=== PATIENT | female | born 1960 | race Caucasian/White ===

== ENCOUNTER 2018-01-14 19:31 | Inpatient (IN) | payer BC ==
[2018-01-14] MEDS ORDERED: NITROGLYCERIN OINT 1 INCH/GM PACKET TOPICAL STA (19:43)
[2018-01-14] MEDS ORDERED: MORPHINE SULFATE 4 MG/ML SYRINGE IV STA (19:43)
[2018-01-14] MEDS ORDERED: SODIUM CHLORIDE 0.9% 1,000 ML IV STA (19:43)
[2018-01-14] MEDS ORDERED: ADENOSINE 3 MG/ML 2 ML VIAL IVP STA ×2 (19:54→20:17)
--- NOTE | 2018-01-14 19:59 | XR ---
EXAMINATION TYPE: XR chest 1V portable DATE OF EXAM: 01/14/2018 COMPARISON: NONE HISTORY: Chest pain TECHNIQUE: Single frontal view of the chest is obtained. FINDINGS: Heart is enlarged. There is no heart failure. Lungs are clear of consolidation. There are chest leads. IMPRESSION: Cardiomegaly. No active cardiopulmonary disease.
[2018-01-14] MEDS ORDERED: DILTIAZEM 5 MG/ML 5 ML VIAL IVP ONE ×2 (20:00→20:15)
[2018-01-14 20:14] LABS: Creatine Kinase 50 U/L (30-135)
[2018-01-14] MEDS: DILTIAZEM 50 MG in SODIUM CHLORIDE 0.9% 40 ML IV SCH (20:15)
[2018-01-14 20:16] LABS: HCT 43.6 % (34.0-46.0); HGB 13.7 gm/dL (11.4-16.0); MCHC 31.5 g/dL (31.0-37.0); MCV 85.5 fL (80.0-100.0); Platelet Count 235 k/uL (150-450); RBC 5.09 m/uL (3.80-5.40); RDW 14.1 % (11.5-15.5)
[2018-01-14 20:19] LABS: Albumin 3.9 g/dL (3.5-5.0); Magnesium 1.3 mg/dL (1.6-2.3); Potassium 4.7 mmol/L (3.5-5.1); Total Bilirubin 1.9 mg/dL (0.2-1.3); Total Protein 7.4 g/dL (6.3-8.2)
[2018-01-14 20:27] LABS: Creatine Kinase MB 0.4 ng/mL (0.0-2.4); Troponin I <0.012 ng/mL (0.000-0.034)
[2018-01-14 20:33] LABS: VBG PH 7.39 (7.31-7.41)
[2018-01-14] MEDS ORDERED: PIPERACILLIN-TAZOBACTAM 3.375 GM in DEXTROSE/WATER 1 50ML.BAG IVPB STA (20:33)
[2018-01-14 20:50] LABS: INR 1.1 (<1.2)
[2018-01-14 20:50] LABS: Appearance,Urine Cloudy (Clear); Bacteria,Urine Rare /hpf; Bilirubin,Urine Negative (Negative); Blood,Urine Moderate (Negative); Color,Urine Yellow; Glucose,Urine (UA) 4+ (Negative); Ketones,Urine 1+ (Negative); Leukocyte Esterase,Urine Moderate (Negative); Mucus,Urine Rare /hpf; Nitrite,Urine Negative (Negative); PH, Urine 6.5 (5.0-8.0); Protein,Urine 1+ (Negative); RBC,Urine 27 /hpf (0-5); Specific Gravity,Urine 1.013 (1.001-1.035); Squamous Epithelial Cell,Urine 7 /hpf (0-4); Urobilinogen,Urine <2.0 mg/dL (<2.0); WBC,Urine 19 /hpf (0-5)
[2018-01-14] MEDS ORDERED: INSULIN REGULAR 100 UNIT/ML VIAL SQ ONE (20:51)
[2018-01-14 20:52] LABS: D-Dimer 3.28 mg/L FEU (<0.60)
--- NOTE | 2018-01-14 20:57 | ED ---
SOB HPI - General Chief Complaint: Shortness of Breath Stated Complaint: PATSY, Palpitations Time Seen by Provider: 01/14/18 19:37 Source: patient, EMS Mode of arrival: EMS Limitations: no limitations - History of Present Illness Initial Comments: Extremely years old female history of heart disease comes in with a shortness of breath and tachycardia on arrival heart rate was 189 she was quite tachycardic and tachypneic complaining about shortness of breath and we noticed that she has high fever she stated she probably missed some of her medication she is not sure how many dosage she is on now his overall toe and carvedilol at home. She is complaining about mild chest pain it gets worse with deep breaths denies any abdominal pain no frequency urgency dysuria no symptoms of TIA or CVA - Related Data Home Medications Medication Instructions Recorded Confirmed Carvedilol [Coreg] 18.75 mg PO BID 01/14/18 01/14/18 Lisinopril [Zestril] 15 mg PO BID 01/14/18 01/14/18 Rivaroxaban [Xarelto] 20 mg PO HS 01/14/18 01/14/18 Allergies Allergy/AdvReac Type Severity Reaction Status Date / Time ergocalciferol (vitamin D2) Allergy Rash/Hives Verified 01/14/18 20:01 [From Vitamin D2] Review of Systems ROS Statement: Those systems with pertinent positive or pertinent negative responses have been documented in the HPI. ROS Other: All systems not noted in ROS Statement are negative. General Exam - General Exam Comments Initial Comments: General: The patient is awake and alert, the cardiac, tachypneic in severe distress Skin: Skin is warm and dry and no rashes or lesions are noted. Eye: Pupils are equal, round and reactive to light, extra-ocular movements are intact; there is normal conjunctiva bilaterally. Ears, nose, mouth and throat: There are moist mucous membranes and no oral lesions. Neck: The neck is supple, there is no tenderness, looks like she is any congestive heart failure Cardiovascular: Tachycardia heart rate around 200 Respiratory: To auscultation bilateral, crease breath sounds bilaterally Gastrointestinal: Soft, non-distended, non-tender abdomen without masses or organomegaly noted. There is no rebound or guarding present. Bowel sounds are unremarkable. Back: There is no tenderness to palpation in the midline. There is no obvious deformity. Musculoskeletal: Normal ROM, no tenderness, There is no pedal edema. There is no calf tenderness or swelling. No cords were appreciated. Neurological: CN II-XII intact, Cranial nerves III through XII are intact. There are no obvious motor or sensory deficits. Coordination appears grossly intact. Speech is normal. Psychiatric: Cooperative, Limitations: no limitations Course Vital Signs 01/14/18 01/14/18 01/14/18 19:32 20:23 20:28 Temperature 103.0 F H Pulse Rate 177 H 174 H Respiratory 40 H 36 H Rate Blood Pressure 142/56 104/46 O2 Sat by Pulse 95 94 L Oximetry 01/14/18 01/14/18 01/14/18 20:30 20:45 21:00 Temperature Pulse Rate Respiratory Rate Blood Pressure 104/46 95/50 87/52 O2 Sat by Pulse Oximetry 01/14/18 01/14/18 21:20 21:33 Temperature Pulse Rate 135 H Respiratory 26 H Rate Blood Pressure 208/148 113/63 O2 Sat by Pulse 96 Oximetry EKG is noticed tachycardia heart rate is 189 noticed duration is 134 QT/QTc is 274/485 years right bundle branch block no significant STEMI noticed heart rate is too fast - Reevaluation(s) Reevaluation #1: Second EKG sinus tachycardia ventricular rate is 169 [place] interval is 112 QRS duration is 142 QT/QTc is 290/492% sinus tach right bundle branch block no clear STEMI noticed 01/14/18 21:45 Medical Decision Making - Lab Data Result diagrams: 01/14/18 19:50 01/14/18 19:50 Lab Results 01/14/18 01/14/18 01/14/18 Range/Units 19:50 19:50 19:50 WBC 5.0 (3.8-10.6) k/uL RBC 5.09 (3.80-5.40) m/uL Hgb 13.7 (11.4-16.0) gm/dL Hct 43.6 (34.0-46.0) % MCV 85.5 (80.0-100.0) fL MCH 27.0 (25.0-35.0) pg MCHC 31.5 (31.0-37.0) g/dL RDW 14.1 (11.5-15.5) % Plt Count 235 (150-450) k/uL Neutrophils % (Manual) 65 % Band Neutrophils % 19 % Lymphocytes % (Manual) 15 % Monocytes % (Manual) 1 % Neutrophils # (Manual) 4.20 (1.3-7.7) k/uL Lymphocytes # (Manual) 0.75 L (1.0-4.8) k/uL Monocytes # (Manual) 0.05 (0-1.0) k/uL Nucleated RBCs 0 (0-0) /100 WBC Manual Slide Review Performed RBC Morphology Normal PT (9.0-12.0) sec INR (<1.2) APTT (22.0-30.0) sec D-Dimer (<0.60) mg/L FEU VBG pH (7.31-7.41) VBG pCO2 (37-51) mmHg VBG HCO3 (24-28) mmol/L Sodium 135 L (137-145) mmol/L Potassium 4.7 (3.5-5.1) mmol/L Chloride 100 (98-107) mmol/L Carbon Dioxide 19 L (22-30) mmol/L Anion Gap 16 mmol/L BUN 20 H (7-17) mg/dL Creatinine 1.10 H (0.52-1.04) mg/dL Est GFR (CKD-EPI)AfAm 63 (>60 ml/min/1.73 sqM) Est GFR (CKD-EPI)NonAf 55 (>60 ml/min/1.73 sqM) Glucose 335 H (74-99) mg/dL Plasma Lactic Acid Scotty (0.7-2.0) mmol/L Calcium 9.0 (8.4-10.2) mg/dL Magnesium 1.3 L (1.6-2.3) mg/dL Total Bilirubin 1.9 H (0.2-1.3) mg/dL AST 30 (14-36) U/L ALT 22 (9-52) U/L Alkaline Phosphatase 105 (38-126) U/L Total Creatine Kinase 50 (30-135) U/L CK-MB (CK-2) 0.4 (0.0-2.4) ng/mL CK-MB (CK-2) Rel Index 0.8 Troponin I <0.012 (0.000-0.034) ng/mL NT-Pro-B Natriuret Pep pg/mL Total Protein 7.4 (6.3-8.2) g/dL Albumin 3.9 (3.5-5.0) g/dL Urine Color Urine Appearance (Clear) Urine pH (5.0-8.0) Ur Specific [place] (1.001-1.035) Urine Protein (Negative) Urine Glucose (UA) (Negative) Urine Ketones (Negative) Urine Blood (Negative) Urine Nitrite (Negative) Urine Bilirubin (Negative) Urine Urobilinogen (<2.0) mg/dL Ur Leukocyte Esterase (Negative) Urine RBC (0-5) /hpf Urine WBC (0-5) /hpf Ur Squamous Epith Cells (0-4) /hpf Urine Bacteria (None) /hpf Urine Mucus (None) /hpf 01/14/18 01/14/18 01/14/18 Range/Units 19:50 19:50 19:50 WBC (3.8-10.6) k/uL RBC (3.80-5.40) m/uL Hgb (11.4-16.0) gm/dL Hct (34.0-46.0) % MCV (80.0-100.0) fL MCH (25.0-35.0) pg MCHC (31.0-37.0) g/dL RDW (11.5-15.5) % Plt Count (150-450) k/uL Neutrophils % (Manual) % Band Neutrophils % % Lymphocytes % (Manual) % Monocytes % (Manual) % Neutrophils # (Manual) (1.3-7.7) k/uL Lymphocytes # (Manual) (1.0-4.8) k/uL Monocytes # (Manual) (0-1.0) k/uL Nucleated RBCs (0-0) /100 WBC Manual Slide Review RBC Morphology PT 11.0 (9.0-12.0) sec INR 1.1 (<1.2) APTT 26.0 (22.0-30.0) sec D-Dimer 3.28 H (<0.60) mg/L FEU VBG pH (7.31-7.41) VBG pCO2 (37-51) mmHg VBG HCO3 (24-28) mmol/L Sodium (137-145) mmol/L Potassium (3.5-5.1) mmol/L Chloride (98-107) mmol/L Carbon Dioxide (22-30) mmol/L Anion Gap mmol/L BUN (7-17) mg/dL Creatinine (0.52-1.04) mg/dL Est GFR (CKD-EPI)AfAm (>60 ml/min/1.73 sqM) Est GFR (CKD-EPI)NonAf (>60 ml/min/1.73 sqM) Glucose (74-99) mg/dL Plasma Lactic Acid Scotty 6.0 H* (0.7-2.0) mmol/L Calcium (8.4-10.2) mg/dL Magnesium (1.6-2.3) mg/dL Total Bilirubin (0.2-1.3) mg/dL AST (14-36) U/L ALT (9-52) U/L Alkaline Phosphatase (38-126) U/L Total Creatine Kinase (30-135) U/L CK-MB (CK-2) (0.0-2.4) ng/mL CK-MB (CK-2) Rel Index Troponin I (0.000-0.034) ng/mL NT-Pro-B Natriuret Pep 911 pg/mL Total Protein (6.3-8.2) g/dL Albumin (3.5-5.0) g/dL Urine Color Urine Appearance (Clear) Urine pH (5.0-8.0) Ur Specific [place] (1.001-1.035) Urine Protein (Negative) Urine Glucose (UA) (Negative) Urine Ketones (Negative) Urine Blood (Negative) Urine Nitrite (Negative) Urine Bilirubin (Negative) Urine Urobilinogen (<2.0) mg/dL Ur Leukocyte Esterase (Negative) Urine RBC (0-5) /hpf Urine WBC (0-5) /hpf Ur Squamous Epith Cells (0-4) /hpf Urine Bacteria (None) /hpf Urine Mucus (None) /hpf 01/14/18 01/14/18 Range/Units 20:20 20:25 WBC (3.8-10.6) k/uL RBC (3.80-5.40) m/uL Hgb (11.4-16.0) gm/dL Hct (34.0-46.0) % MCV (80.0-100.0) fL MCH (25.0-35.0) pg MCHC (31.0-37.0) g/dL RDW (11.5-15.5) % Plt Count (150-450) k/uL Neutrophils % (Manual) % Band Neutrophils % % Lymphocytes % (Manual) % Monocytes % (Manual) % Neutrophils # (Manual) (1.3-7.7) k/uL Lymphocytes # (Manual) (1.0-4.8) k/uL Monocytes # (Manual) (0-1.0) k/uL Nucleated RBCs (0-0) /100 WBC Manual Slide Review RBC Morphology PT (9.0-12.0) sec INR (<1.2) APTT (22.0-30.0) sec D-Dimer (<0.60) mg/L FEU VBG pH 7.39 (7.31-7.41) VBG pCO2 29 L (37-51) mmHg VBG HCO3 17 L (24-28) mmol/L Sodium (137-145) mmol/L Potassium (3.5-5.1) mmol/L Chloride (98-107) mmol/L Carbon Dioxide (22-30) mmol/L Anion Gap mmol/L BUN (7-17) mg/dL Creatinine (0.52-1.04) mg/dL Est GFR (CKD-EPI)AfAm (>60 ml/min/1.73 sqM) Est GFR (CKD-EPI)NonAf (>60 ml/min/1.73 sqM) Glucose (74-99) mg/dL Plasma Lactic Acid Scotty (0.7-2.0) mmol/L Calcium (8.4-10.2) mg/dL Magnesium (1.6-2.3) mg/dL Total Bilirubin (0.2-1.3) mg/dL AST (14-36) U/L ALT (9-52) U/L Alkaline Phosphatase (38-126) U/L Total Creatine Kinase (30-135) U/L CK-MB (CK-2) (0.0-2.4) ng/mL CK-MB (CK-2) Rel Index Troponin I (0.000-0.034) ng/mL NT-Pro-B Natriuret Pep pg/mL Total Protein (6.3-8.2) g/dL Albumin (3.5-5.0) g/dL Urine Color Yellow Urine Appearance Cloudy H (Clear) Urine pH 6.5 (5.0-8.0) Ur Specific [place] 1.013 (1.001-1.035) Urine Protein 1+ H (Negative) Urine Glucose (UA) 4+ H (Negative) Urine Ketones 1+ H (Negative) Urine Blood Moderate H (Negative) Urine Nitrite Negative (Negative) Urine Bilirubin Negative (Negative) Urine Urobilinogen <2.0 (<2.0) mg/dL Ur Leukocyte Esterase Moderate H (Negative) Urine RBC 27 H (0-5) /hpf Urine WBC 19 H (0-5) /hpf Ur Squamous Epith Cells 7 H (0-4) /hpf Urine Bacteria Rare H (None) /hpf Urine Mucus Rare H (None) /hpf Critical Care Time Total Critical Care Time: 60 Critical Care Time: He came in with the tachycardia and tachypnea she was in a severe distress adenosine was tried adenosine not slow the heart rate at all. Cardizem was trying to Cardizem's took care of the tachycardia heart rate was 134. Then we noticed that she has a fever septic workup was done she was given broad- spectrum antibiotics urine culture blood cultures were done chest x-ray showed cardiomegaly and bicarb is 17 and sugar is 3:30 5H not quite ketoacidosis she definitely has a metabolic acidosis and hyperglycemia and urinalysis is positive as well probably cystitis leading to sepsis area be admitted to Dr. Mcclure with the Dr. Francis infectious disease consult and cardiology area d-dimer came back positive she is given ago for CT angiogram Disposition Referrals: Ruddy Downey MD [Primary Care Provider] - 1-2 days
[2018-01-14 21:01] LABS: Band Neutrophils % 19 %; Lymphocytes # (M) 0.75 k/uL (1.0-4.8); Monocytes # (M) 0.05 k/uL (0-1.0); Neutrophils % (M) 65 %; Nucleated Red Blood Cells 0 /100 WBC (0-0); Total Cells Counted 100
[2018-01-14] MEDS ORDERED: SODIUM CHLORIDE 0.9% 250 ML IV STA ×2 (21:20→23:29)
--- NOTE | 2018-01-14 22:14 | CT ---
EXAMINATION TYPE: CT chest angio for PE DATE OF EXAM: 01/14/2018 COMPARISON: None HISTORY: Difficulty breathing and increased heart rate. CT DLP: 731.8 mGycm Automated exposure control for dose reduction was used. CONTRAST: CT Chest for pulmonary embolism performed with with IV Contrast, patient injected with 77ml mL of Iso aldo 370. FINDINGS: There are 3-D post processed images. There is markedly enlarged thyroid gland consistent with multinodular goiter. There are a few paratra cheal and bronchial lymph nodes up to 1 cm. Heart is enlarged. I see no filling defects in the pulmon denise arteries. Thoracic aorta is intact. There is no evidence of aneurysm or dissection. There is patc hy interstitial density at the lung bases. There is no pleural effusion. There is spurring in the tho racic spine. There is no compression fracture. IMPRESSION: No evidence of pulmonary embolism. Mild fibrotic changes at the lung bases. Multinodular goiter.
[2018-01-14] MEDS ORDERED: SODIUM CHLORIDE 0.9% 500 ML IV ONE (22:32)
[2018-01-14] MEDS ORDERED: NALOXONE 0.4 MG/ML 1 ML VIAL IV PRN (23:20)
[2018-01-14] MEDS ORDERED: ACETAMINOPHEN TAB 325 MG TAB PO PRN (23:20)
[2018-01-14] MEDS ORDERED: MORPHINE SULFATE 4 MG/ML SYRINGE IV PRN (23:20)
[2018-01-15] LABS: Glucose,Whole Blood 276 mg/dL (75-99)
[2018-01-15 00:02] LABS: VBG PH 7.28 (7.31-7.41)
[2018-01-15] MEDS ORDERED: INSULIN REGULAR 100 UNIT/ML VIAL SQ ONE (01:01)
[2018-01-15] MEDS ORDERED: SODIUM CHLORIDE 0.9% 500 ML IV ONE (01:01)
[2018-01-15] MEDS: DILTIAZEM 50 MG in SODIUM CHLORIDE 0.9% 40 ML IV SCH ×2 (01:23→09:31)
[2018-01-15 01:48] LABS: Glucose,Whole Blood 180 mg/dL (75-99)
[2018-01-15] MEDS ORDERED: NOREPINEPHRIN 4 MG-0.9% NS PMX 4 MG/250 ML ML IV ONE (02:06)
[2018-01-15] MEDS ORDERED: SODIUM CHLORIDE 0.9% 1,000 ML IV ONE ×5 (02:12→07:09)
[2018-01-15] MEDS ORDERED: NOREPINEPHRIN 4 MG-0.9% NS PMX 4 MG/250 ML ML IV SCH (02:30)
[2018-01-15 02:46] VITALS: BMI 50.6
[2018-01-15 03:13] LABS: Hypochromasia Slight
[2018-01-15 03:18] LABS: HCT 39.3 % (34.0-46.0); HGB 12.1 gm/dL (11.4-16.0); MCH 27.4 pg (25.0-35.0); MCHC 30.8 g/dL (31.0-37.0); MCV 88.9 fL (80.0-100.0); Mean Platelet Volume 7.3; Platelet Count 219 k/uL (150-450); RBC 4.42 m/uL (3.80-5.40); RDW 14.1 % (11.5-15.5); WBC 20.7 k/uL (3.8-10.6)
[2018-01-15 03:32] LABS: Calcium 8.2 mg/dL (8.4-10.2); Magnesium 1.3 mg/dL (1.6-2.3); Phosphorus 1.9 mg/dL (2.5-4.5); Potassium 3.3 mmol/L (3.5-5.1)
[2018-01-15 03:40] LABS: Myelocytes # (M) 0.21 k/uL (0); Myelocytes % 1 %; Neutrophils % (M) 48 %; Nucleated Red Blood Cells 0 /100 WBC (0-0)
[2018-01-15 03:42] LABS: Band Neutrophils % 36 %; Lymphocytes # (M) 1.86 k/uL (1.0-4.8); Metamyelocytes # (M) 1.45 k/uL (0); Metamyelocytes % 7 %; Monocytes # (M) 0.21 k/uL (0-1.0); Total Cells Counted 200
[2018-01-15 03:43] LABS: Toxic Granulation Present; Toxic Vacuolation Present
[2018-01-15] MEDS ORDERED: VANCOMYCIN IV PER PHARMACY 1 EACH MISC MISCELLANE PRN (04:20)
[2018-01-15] MEDS ORDERED: SODIUM CHLORIDE 0.9% 99 ML with VASOPRESSIN 20 UNIT IV SCH ×2 (04:30)
[2018-01-15] MEDS ORDERED: MAGNESIUM SULFATE-D5W PMX 1 GM in DEXTROSE/WATER 1 100ML.BAG IVPB ONE ×2 (04:55→09:00)
[2018-01-15] MEDS ORDERED: POTASSIUM CHLORIDE 20 MEQ in WATER FOR INJECTION 1 100ML.BAG IVPB STA (04:55)
[2018-01-15] MEDS ORDERED: VANCOMYCIN 2,000 MG in SODIUM CHLORIDE 0.9% 500 ML IVPB ONE (05:00)
[2018-01-15 06:01] LABS: Glucose,Whole Blood 211 mg/dL (75-99)
[2018-01-15] MEDS ORDERED: NOREPINEPHRINE 16 MG in DEXTROSE 5% IN WATER 250 ML IV SCH ×2 (06:45)
[2018-01-15] MEDS ORDERED: INSULIN REGULAR BOLUS (FROM DRIP BAG) IV PRN (07:04)
--- NOTE | 2018-01-15 07:04 | P.CNPUL ---
History of Present Illness Consult date: 01/15/18 Chief complaint: Septic shock, hypotension History of present illness: 58-year-old morbidly obese female patient with a BMI of 50.6, with known history of chronic atrial fibrillation was demented on a combination of Coreg and Xarelto on outpatient basis. The patient presented to the emergency department yesterday evening complaining of increased shortness of breath. At the time of arrival the patient was found to be tachycardic with a heart rate in the 190 and she was in atrial fibrillation with rapid ventricular response. She was started on a Cardizem drip for rate control. Subsequently the patient had other manifestations of her last weakness, chills, fatigue, fever and blood work showed severe lactic acidosis, leukocytosis, and as the patient got moved to the intensive care unit the patient became profoundly hypotensive. She was resuscitated with a total of 4-1/2 L of IV fluids to support. She was also started on broad-spectrum antibiotics a combination of Zosyn and vancomycin. At this point in time, the patient is on pressors and the patient is on a combination of norepinephrine infusion running at 35 mics and vasopressin physiologic dose at 0.03 units per minute. The patient has developed an acute kidney injury in the creatinine up to 2.3. The patient is not producing any urine. With fluid resuscitation and pressors, the patient is feeling warmer at this point in time and she has pulses in lower extremities without palpable bilaterally. Subsequent lactic acid level came down to 7.0. We are the process of aggressively resuscitating this patient. Her cardiac rhythm is back to normal sinus and she is currently off the Cardizem drip. Upon further investigation, the patient had a CT angios the chest in the emergency department that showed no evidence of any pulmonary embolism. There was mildly enlarged thyroid gland consistent with multinodular goiter. There was some few paratracheal and bronchial lymph nodes up to 1 cm in size. The patient had a UA that showed 19 WBCs and was cloudy with +4 glucose and +1 protein. Upon further inspection she has a large sacral decub position ulcer stage IV and there are areas that are unstageable. The wound is extending within her medial aspect of the buttock, and this is a fairly large area extending from the coccyx area until the anal opening/orifice. It is also going laterally from the midline in both directions right and left covering probably 3 cm and a stat action and there are areas of necrosis and there is some purulent material covering the wound surface. This is at least stage III possibly stage IV decub ulcer. No exposed bone visualized on inspection. Neurologically the patient was encephalopathic at the time of arrival and with the resuscitation the patient improved and she is currently awake and following commands and answering questions appropriately. She wants to be a DNR/DNI CODE STATUS. I discussed this with her at length. She categorically refuses to be intubated and she has advanced directives at home and signed paperwork in this regard. She reports that her health in general has been poor and this has been essentially related to her morbid obesity. As for the sacral wounds, this is related to pressure necrosis and immobility. She lives at home with her mother. Denies having any history of chronic lung disease or asthma or COPD. She has history of chronic atrial fibrillation. No DVTs. No pulmonate embolism. No visual diagnosis of sleep apnea. Review of Systems Constitutional: Reports chronic pain, Reports fatigue, Reports fever, Reports night sweats, Reports sweats, Reports weakness, Reports weight gain Eyes: denies blurred vision, denies bulging eye, denies decreased vision Ears: deny: decreased hearing, ear discharge, earache, tinnitus Ears, nose, mouth and throat: Denies headache, Denies sore throat Cardiovascular: Reports decreased exercise tolerance, Reports dyspnea on exertion, Reports irregular heart beat, Reports lightheadedness, Reports palpitations Respiratory: Reports dyspnea Gastrointestinal: Denies abdominal pain, Denies diarrhea, Denies nausea, Denies vomiting Genitourinary: Denies dysuria, Denies hematuria Musculoskeletal: Denies myalgias Musculoskeletal: absent: ankle pain, ankle stiffness, ankle swelling, as per HPI Integumentary: Reports as per HPI, Reports sores, Reports wounds Neurological: Reports change in mentation, Reports confusion, Reports weakness Psychiatric: Denies anxiety, Denies depression Endocrine: Reports high blood sugars, Denies fatigue, Denies weight change Hematologic/Lymphatic: Reports as per HPI Allergic/Immunologic: Reports as per HPI Past Medical History Past Medical History: Atrial Fibrillation, Heart Failure, Sleep Apnea/CPAP/BIPAP Additional Past Medical History / Comment(s): Morbid obesity, chronic atrial fibrillation, hypertension and questionable sleep apnea History of Any Multi-Drug Resistant Organisms: None Reported Past Surgical History: No Surgical Hx Reported Past Psychological History: No Psychological Hx Reported Smoking Status: Never smoker Past Alcohol Use History: Occasional Past Drug Use History: None Reported Medications and Allergies Home Medications Medication Instructions Recorded Confirmed Type Carvedilol [Coreg] 18.75 mg PO BID 01/14/18 01/14/18 History Lisinopril [Zestril] 15 mg PO BID 01/14/18 01/14/18 History Rivaroxaban [Xarelto] 20 mg PO HS 01/14/18 01/14/18 History Allergies Allergy/AdvReac Type Severity Reaction Status Date / Time ergocalciferol (vitamin D2) Allergy Rash/Hives Verified 01/14/18 20:01 [From Vitamin D2] Physical Exam Vitals: Vital Signs Temp Pulse Resp BP Pulse Ox 01/15/18 05:00 104 H 28 H 91/47 95 01/15/18 04:50 105 H 30 H 103/53 94 L 01/15/18 04:40 105 H 27 H 101/53 95 01/15/18 04:30 104 H 24 113/49 94 L 01/15/18 04:20 103 H 28 H 100/55 94 L 01/15/18 04:10 104 H 35 H 71/48 93 L 01/15/18 04:00 104 H 31 H 104/51 96 03 03:50 104 H 21 77/34 95 01/15/18 03:40 100 40 H 86/54 95 01/15/18 03:30 104 H 30 H 96/51 94 L 01/15/18 03:20 102 H 22 99/55 94 L 01/15/18 03:10 105 H 29 H 101/52 94 L 01/15/18 03:00 101 H 23 93/54 94 L 01/15/18 02:50 101 H 25 H 92/45 96 01/15/18 02:40 101 H 22 80/47 96 01/15/18 02:30 99 23 96/55 91 L 01/15/18 02:20 102 H 28 H 68/47 92 L 01/15/18 02:10 107 H 27 H 71/45 94 L 01/15/18 02:00 98.1 F 107 H 30 H 62/44 91 L 01/15/18 00:31 115 H 20 93/55 01/15/18 00:09 116 H 20 149/105 98 01/14/18 23:37 119 H 117/53 01/14/18 23:00 125 H 22 97 01/14/18 22:18 100.9 F H 125 H 20 101/54 97 01/14/18 22:15 124 H 124/94 01/14/18 21:55 121 H 20 96/53 96 01/14/18 21:33 135 H 26 H 113/63 96 01/14/18 21:00 87/52 01/14/18 20:45 95/50 01/14/18 20:30 104/46 01/14/18 20:28 174 H 104/46 94 L 01/14/18 20:23 177 H 36 H 142/56 95 01/14/18 19:53 56 H 01/14/18 19:32 103.0 F H 40 H Intake and Output 01/14/18 01/14/18 01/15/18 14:59 22:59 06:59 Intake Total 3240.375 Output Total 20 Balance 3220.375 Intake: IV 3000 Sodium Chloride 0.9% 1, 3000 000 ml @ 999 mls/hr IV . Q1H1M [facility] Rx#:[id number] Intake, IV Titration 240.375 Amount Diltiazem 50 mg In Sodium 66 Chloride 0.9% 40 ml @ 10 MG/HR 10 mls/hr IV .Q5H [facility] Rx#:[id number] Norepinephrin 4 mg-0.9% 174.375 Ns Pmx 4 mg In 250 ml @ Titrate IV .Q0M [facility] Rx#: [id number] Output: Urine 20 Other: Weight 99.79 kg 138 kg Morbidly obese, comfortable encephalopathic at a time of arrival and currently she is awake and alert and she is following commands and answering questions appropriately. She is very reasonable and with the program at this point in time. She is having some sweats. Head exam was generally normal. There was no scleral icterus or corneal arcus. Mucous membranes were moist. Neck was supple and without jugular venous distension, thyromegaly, or carotid bruits. Carotids were easily palpable bilaterally. There was no adenopathy. The patient currently has an IJ in her left side lung sounds are diminished breath sound bilaterally in the lung bases. Otherwise there is no wheezes or rhonchi any crackles. heart sounds are irregular S1-S2, no significant murmurs could be appreciated. No right ventricular heave or thrill. Abdomen is obese soft nontender. Organs cannot be accurately palpated. There is no edema. No direct tenderness about this or guarding. Extremities revealed diminished pulses. There palpable. There is no cyanosis or clubbing at this point. Neurologically patient is awake and alert and is no focal neurological deficit. Skin the patient has a stage IV sacral decubitus patient ulcer extending from the sacral area to the anal orifice in the midline and extending laterally in both directions right and left around 2-3 cm in size. This is a stage IV ulcer covered with purulent material and there are obvious areas of necrosis. Results - Laboratory Findings CBC and BMP: 01/15/18 03:04 01/15/18 03:04 PT/INR, D-dimer PT 11.0 sec (9.0-12.0) 01/14/18 19:50 INR 1.1 (<1.2) 01/14/18 19:50 D-Dimer 3.28 mg/L FEU (<0.60) H 01/14/18 19:50 Abnormal lab findings: Abnormal Labs 01/14/18 01/14/18 01/14/18 19:50 19:50 19:50 WBC MCHC Neutrophils # (Manual) Lymphocytes # (Manual) 0.75 L Metamyelocytes # (Man) Myelocytes # (Manual) D-Dimer 3.28 H VBG pH VBG pCO2 VBG HCO3 Sodium 135 L Potassium Carbon Dioxide 19 L BUN 20 H Creatinine 1.10 H Glucose 335 H POC Glucose (mg/dL) Plasma Lactic Acid Scotty Calcium Phosphorus Magnesium 1.3 L Total Bilirubin 1.9 H Urine Appearance Urine Protein Urine Glucose (UA) Urine Ketones Urine Blood Ur Leukocyte Esterase Urine RBC Urine WBC Ur Squamous Epith Cells Urine Bacteria Urine Mucus 01/14/18 01/14/18 01/14/18 19:50 20:20 20:25 WBC MCHC Neutrophils # (Manual) Lymphocytes # (Manual) Metamyelocytes # (Man) Myelocytes # (Manual) D-Dimer VBG pH VBG pCO2 29 L VBG HCO3 17 L Sodium Potassium Carbon Dioxide BUN Creatinine Glucose POC Glucose (mg/dL) Plasma Lactic Acid Scotty 6.0 H* Calcium Phosphorus Magnesium Total Bilirubin Urine Appearance Cloudy H Urine Protein 1+ H Urine Glucose (UA) 4+ H Urine Ketones 1+ H Urine Blood Moderate H Ur Leukocyte Esterase Moderate H Urine RBC 27 H Urine WBC 19 H Ur Squamous Epith Cells 7 H Urine Bacteria Rare H Urine Mucus Rare H 01/14/18 01/14/18 01/15/18 23:55 23:57 00:35 WBC MCHC Neutrophils # (Manual) Lymphocytes # (Manual) Metamyelocytes # (Man) Myelocytes # (Manual) D-Dimer VBG pH 7.28 L VBG pCO2 34 L VBG HCO3 16 L Sodium Potassium Carbon Dioxide BUN Creatinine Glucose POC Glucose (mg/dL) 276 H Plasma Lactic Acid Scotty 10.8 H* Calcium Phosphorus Magnesium Total Bilirubin Urine Appearance Urine Protein Urine Glucose (UA) Urine Ketones Urine Blood Ur Leukocyte Esterase Urine RBC Urine WBC Ur Squamous Epith Cells Urine Bacteria Urine Mucus 01/15/18 01/15/18 01/15/18 01:46 03:04 03:04 WBC 20.7 H MCHC 30.8 L Neutrophils # (Manual) 17.30 H Lymphocytes # (Manual) Metamyelocytes # (Man) 1.45 H Myelocytes # (Manual) 0.21 H D-Dimer VBG pH VBG pCO2 VBG HCO3 Sodium 136 L Potassium 3.3 L Carbon Dioxide 15 L BUN 26 H Creatinine 2.32 H Glucose 147 H POC Glucose (mg/dL) 180 H Plasma Lactic Acid Scotty Calcium 8.2 L Phosphorus 1.9 L Magnesium 1.3 L Total Bilirubin Urine Appearance Urine Protein Urine Glucose (UA) Urine Ketones Urine Blood Ur Leukocyte Esterase Urine RBC Urine WBC Ur Squamous Epith Cells Urine Bacteria Urine Mucus 01/15/18 01/15/18 04:17 06:00 WBC MCHC Neutrophils # (Manual) Lymphocytes # (Manual) Metamyelocytes # (Man) Myelocytes # (Manual) D-Dimer VBG pH VBG pCO2 VBG HCO3 Sodium Potassium Carbon Dioxide BUN Creatinine Glucose POC Glucose (mg/dL) 211 H Plasma Lactic Acid Scotty 7.0 H* Calcium Phosphorus Magnesium Total Bilirubin Urine Appearance Urine Protein Urine Glucose (UA) Urine Ketones Urine Blood Ur Leukocyte Esterase Urine RBC Urine WBC Ur Squamous Epith Cells Urine Bacteria Urine Mucus - Diagnostic Findings Chest x-ray: image reviewed CT scan - chest: image reviewed Assessment and Plan Plan: Assessment 1 septic shock. The patient is profoundly hypotensive and in hemodynamic collapse. The most likely source of infection is a sacral decubitus ulceration. The patient has a stage IV sacral decub ulcer/pressure ulcer due to immobility. No other obvious source of infection. The possibility of urinary tract infection with secondary septicemia is felt to be less likely. 2 profound hypotension resuscitated with 5 L of IV fluids and she is currently on high-dose pressors including norepinephrine infusion and vasopressin. 3 acute kidney injury secondary to above. The patient is oliguric and creatinine is up to 2.3. 4 severe lactic acidosis secondary to above 5 CHF fibrillation with rapid ventricular response at the time of admission and currently the patient is in sinus rhythm 6 chronic atrial fibrillation maintained on a combination of Coreg and Xarelto on outpatient basis 7. Hyperglycemia likely sepsis induced. 8 leukocytosis secondary to above 9 morbid obesity with a BMI 50.6 10 DNR/DNI CODE STATUS 11 encephalopathy secondary to sepsis, improving. Plan We'll give the patient additional 2 L of IV fluids. Triple-lumen catheter was inserted. Artery catheter was inserted. We'll monitor the CVP. We'll continue the pressors and we'll gradually wean down the norepinephrine infusion maintaining a mean arterial pressure above 65. Monitor the urine output. Cover the patient with a combination of Zosyn and vancomycin. Keep the Cardizem drip off for now. Obtain an ID consultation. The patient will need also wound care. We cleaned the wound and apply many honey. And will put OptiForm for now. We'll consult infectious disease. We'll utilize insulin drip for blood sugar control. Will stop the Xarelto as the patient is developing acute kidney injury. We'll use only heparin subcu for DVT prophylaxis for now. May need an echocardiogram to assess her baseline LV function. Condition is critical. She has declined to be intubated in case her condition gets worse. She apparently has advanced directives. Her encephalopathy is improving and the patient is much more alert and awake yet she is still critically ill. Time with Patient: Greater than 30
[2018-01-15] MEDS ORDERED: INSULIN REGULAR 100 UNIT in SODIUM CHLORIDE 0.9% 100 ML IV SCH (07:15)
--- NOTE | 2018-01-15 07:23 | PCN ---
PROCEDURE NOTE PROCEDURE: Insertion of triple-lumen catheter. SITE OF INSERTION: Left IJ. PREOP DIAGNOSIS: Septic shock. POSTOP DIAGNOSIS: Septic shock. TRIPLE LUMEN CATHETER PLACEMENT: Indication Hemodynamic monitoring/Intravenous access. A time-out was completed verifying correct patient, procedure, site, positioning, and implant(s) or special equipment if applicable. The patient was placed in a dependent position appropriate for triple lumen catheter placement based on the vein to be cannulated. The patient's left neck was prepped and draped in sterile fashion. 1% Lidocaine was used to anesthetize the surrounding skin area. A triple lumen 9F Cordis catheter was introduced into the internal jugular vein using Seldinger technique. The catheter was threaded smoothly over the guide wire and appropriate blood return was obtained. Each lumen of the catheter was evacuated of air and flushed with sterile saline. The catheter was then sutured in place to the skin and a sterile dressing applied. Perfusion to the extremity distal to the point of catheter insertion was checked and found to be adequate. No bedside complications or bleeding. Chest x-ray showed no pneumothorax. MMODL / IJN: [id number] /
--- NOTE | 2018-01-15 07:23 | PCN ---
PROCEDURE NOTE PROCEDURE: Insertion art line catheter. PREOP DIAGNOSIS: Septic shock. POSTOP DIAGNOSIS: Septic shock. SITE OF INSERTION: Right radial artery. ARTERIAL LINE PLACEMENT: Indications: Hemodynamic monitoring. A time-out was completed verifying correct patient, procedure, site, positioning, and implant(s) or special equipment if applicable. Christiano's test was performed to ensure adequate perfusion. The patient's right wrist was prepped and draped in sterile fashion. 1% Lidocaine was used to anesthetize the area. An 18G Arrow arterial line was introduced into the radial artery. The catheter was threaded over the guide wire and the needle was removed with appropriate pulsatile blood return. Blood loss was minimal. The catheter was then sutured in place to the skin and a sterile dressing applied. Perfusion to the extremity distal to the point of catheter insertion was checked and found to be adequate. The patient tolerated the procedure well and there were no complications. No bedside complications or bleeding. MMODL / IJN: [id number] /
[2018-01-15] MEDS ORDERED: CARVEDILOL 6.25 MG TAB PO SCH (07:30)
--- NOTE | 2018-01-15 07:35 | CONS ---
CONSULTATION ATTENDING: Dr. Downey Mrs. Allen is a 58-year-old female who is followed by Dr. Joel Gonsalez with a history of atrial fibrillation, anticoagulated, history of hypertension, who presented was not feeling well, chills, fever and achiness. She was noted to be septic with a large decubitus ulcer in her back. According to the patient, she is active physically, but she had that ulceration for a while and was getting worse. She has some dyspnea. No chest pain. She has no significant peripheral edema. No clear PND nor orthopnea. She was evaluated by Dr. Jiménez and was started on pressors as well as a had lines placed. She was tachycardic on presentation. Her rate is better on IV Cardizem. The patient denies any cough. She is a nonsmoker. She denies any prior history of documented obstructive coronary artery disease or congestive heart failure. No prior workup is available to me at this time. Her coronary risk factors are remarkable for the hypertension. MEDICATION: Include lisinopril 15 mg twice a day, Coreg 18.75 mg twice a day, and Xarelto 20 mg daily. REVIEW OF SYSTEMS: RESPIRATORY SYSTEM: She had dyspnea. No significant cough. No document obstructive lung disease. GI SYSTEM: No recent GI bleeding. No peptic ulcer disease. SYSTEM: No dysuria or hematuria. NERVOUS SYSTEM: No stroke or seizure. PHYSICAL EXAMINATION: She is a 58-year-old female, alert. Appears to be acutely ill. Heart rate running in the low 100s with a blood pressure in the 90s to low 100s. HEAD: Normocephalic. EYES: Sclerae anicteric. NECK: Unable to evaluate jugular venous pressure. LUNGS: No wheezes with mild decrease in breath sounds. HEART: Tachycardic S1, S2. No S3 with systolic murmur at the base. No diastolic murmur. ABDOMEN: Soft, obese, nontender. EXTREMITIES: Trace edema. A decubitus wound is noted deep in the buttocks. LAB DATA: Lab data revealed a white blood cell of 20.7, potassium 3.3, BUN and creatinine 26 and 2.32. On presentation her creatinine was 1.1. Her plasma lactic acid was 10.8. Her magnesium is 1.3. Her EKG revealed atrial fibrillation with a right bundle branch block, rate of 189. CT angiogram revealed no evidence of pulmonary embolism. Chest x- ray shows no infiltrate. IMPRESSION: 1. Sepsis probably related to her wound. The patient had large sacral decubitus. 2. Atrial fibrillation with episode of rapid ventricular response on presentation related to her sepsis. 3. Hypertension with septic shock. 4. Acute kidney injury, probably exacerbated by the intravenous dye. 5. Morbid obesity. RECOMMENDATION: I will stop her lisinopril. I will stop her Coreg. I will try her metoprolol to control her blood pressure. An echocardiogram with Doppler will be obtained. I do not believe that we are dealing with an acute congestive heart failure, nor an acute ischemic event. The patient is receiving IV fluid resuscitation as well as pressors as well as antibiotics. Depending on her progress, further recommendation will be made. The prognosis is guarded. The patient has elected to be a no intubation. Thank you for this consult. We will follow with you. SHEELAL / IJN: [id number] /
[2018-01-15] MEDS ORDERED: HEPARIN SODIUM,PORCINE 5,000 UNIT/ML 1 ML VIAL SQ SCH (08:00)
[2018-01-15 08:24] LABS: Glucose,Whole Blood 181 mg/dL (75-99)
[2018-01-15 08:30] LABS: ABG HCO3 13 mmol/L (21-25); ABG Oxygen Saturation 95.8 % (94-97); ABG PCO2 35 mmHg (35-45); ABG PO2 86 mmHg (83-108); ABG TCO2 14 mmol/L (19-24)
[2018-01-15 08:41] LABS: Albumin 2.5 g/dL (3.5-5.0); Potassium 4.2 mmol/L (3.5-5.1); Total Bilirubin 0.9 mg/dL (0.2-1.3); Total Protein 5.4 g/dL (6.3-8.2)
[2018-01-15] MEDS: INSULIN ASPART 100 UNIT/ML 1 ML 10 ML VIAL SQ SCH ×2 (08:57→14:30)
[2018-01-15] MEDS ORDERED: LISINOPRIL 5 MG TAB PO SCH (09:00)
[2018-01-15] MEDS ORDERED: PIPERACILLIN-TAZOBACTAM 3.375 GM in DEXTROSE/WATER 1 50ML.BAG IVPB SCH (09:00)
[2018-01-15] MEDS ORDERED: METOPROLOL TARTRATE 50 MG TAB PO SCH (09:00)
[2018-01-15] MEDS ORDERED: PANTOPRAZOLE 40 MG/10 ML VIAL IVP SCH (09:00)
--- NOTE | 2018-01-15 09:43 | ECHOF ---
Referral Reason:CHF history MEASUREMENTS -------- HEIGHT: 165.1 cm WEIGHT: 137.9 kg BP: 103/54 RVIDd: 3.1 cm (< 3.3) IVSd: 1.6 cm (0.6 - 1.1) LVIDd: 4.4 cm (3.9 - 5.3) LVPWd: 1.9 cm (0.6 - 1.1) IVSs: 2.0 cm LVIDs: 3.0 cm LVPWs: 2.1 cm Ao Diam: 2.9 cm (2.0 - 3.7) LA Diam: 3.2 cm (2.7 - 3.8) MV EXCURSION: 19.132 mm (> 18.000) MV EF SLOPE: 94 mm/s (70 - 150) EPSS: 0.7 cm MV E Jamie: 1.09 m/s MV DecT: 196 ms MV A Jamie: 0.43 m/s MV E/A Ratio: 2.53 RAP: 5.00 mmHg RVSP: 14.00 mmHg FINDINGS -------- Resting tachycardia (HR>100bpm). This was a technically difficult study with suboptimal views. The left ventricular size is normal. There is moderate concentric left ventricular hypertrophy. O verall left ventricular systolic function is normal with, an EF between 55 - 60 %. The right ventricle is normal in size. The left atrium is normal in size. The right atrium is normal in size. Lumason used The aortic valve is trileaflet and appears structurally normal. The mitral valve leaflets are mildly thickened. Mild mitral regurgitation is present. Mild tricuspid regurgitation present. The right ventricular systolic pressure, as measured by Doppl er, is 14.00mmHg. Pulmonic valve appears structurally normal. The aortic root size is normal. The pericardium is normal. CONCLUSIONS -------- 1. Resting tachycardia (HR>100bpm). 2. This was a technically difficult study with suboptimal views. 3. The left ventricular size is normal. 4. There is moderate concentric left ventricular hypertrophy. 5. Overall left ventricular systolic function is normal with, an EF between 55 - 60 %. 6. The right ventricle is normal in size. 7. The left atrium is normal in size. 8. The right atrium is normal in size. 9. Lumason used 10. The aortic valve is trileaflet and appears structurally normal. 11. The mitral valve leaflets are mildly thickened. 12. Mild mitral regurgitation is present. 13. Mild tricuspid regurgitation present. 14. The right ventricular systolic pressure, as measured by Doppler, is 14.00mmHg. 15. Pulmonic valve appears structurally normal. 16. The aortic root size is normal. 17. The pericardium is normal. INSTRUCTOR OF SPANISH: Richa Magana RDCS
[2018-01-15] MEDS ORDERED: SODIUM BICARB 8.4% 50 ML SYR (1 MEQ/ML) IV ONE (10:05)
[2018-01-15] MEDS ORDERED: EPINEPHrine 2 MG in DEXTROSE 5% IN WATER 250 ML IV SCH ×2 (10:15)
[2018-01-15] MEDS: SODIUM CHLORIDE 0.9% 1,000 ML IV SCH ×2 (10:16→11:04)
--- NOTE | 2018-01-15 10:52 | XR ---
EXAMINATION TYPE: XR chest 1V portable DATE OF EXAM: 01/15/2018 COMPARISON: 01/14/2018 INDICATION: Line placement TECHNIQUE: Single frontal view of the chest is obtained. FINDINGS: The heart size is enlarged. The pulmonary vasculature is normal. No suspicious infiltrates are present. Left central venous catheter is in place with tip in the proximal right atrium. No pneumothorax is ev ident. IMPRESSION: 1. No pneumothorax post left central venous catheter placement. Tip is in the proximal right atrium.
[2018-01-15] MEDS ORDERED: ONDANSETRON 4 MG/2 ML VIAL IVP PRN (11:19)
[2018-01-15] MEDS ORDERED: ARTIFICIAL TEARS-HYPROMELLOSE DROPS 15 ML BTL BOTH EYES PRN (11:19)
[2018-01-15] MEDS ORDERED: LORazepam 2 MG/ML INJ IV PRN (11:19)
[2018-01-15] MEDS ORDERED: MORPHINE SULFATE 4 MG/ML SYRINGE IV PRN (11:19)
[2018-01-15] MEDS ORDERED: MORPHINE SULFATE (100 MG/2 ML) 100 MG in SODIUM CHLORIDE 0.9% 100 ML IV SCH (11:30)
[2018-01-15 12:46] LABS: Hemoglobin A1C 9.6 % (4.0-6.0)
[2018-01-15 12:54] VITALS: BP 89/67; PULSE 0; RESP 15; TEMP 101.6
--- NOTE | 2018-01-15 16:37 | P.HPIM ---
History of Present Illness H&P Date: 01/15/18 Chief Complaint: fever shortness of breath weakness is a pleasant 58-year-old gent lady patient of Dr. Downey. She has underlying history of chronic atrial fibrillation,congestive heart failure, sleep apnea, and morbid obesity admittedto the emergency room secondary to increasing shortness of breath. Patient has been ill for at least 1-2 days and was found to be in emergency room to be in atrial fibrillation with rapid ventricular rate heart rate in the 190s, patient was started on Cardizem for control, patient did not respond to adenosine. Patient has some weakness chills fatigue and fever, severe lactic acidosis, and comes in from home, who is caring for the mother. Patient was very sick coming in also noted to have as a large decubitus ulcer which was neglected to be treated as the patient refused to be seen for this in the emergency room on she has leukocytosis of 20,000,Lactic acid of 7.1, patient has significant negative she lives in the peripheral smear with toxic granulation and metamyelocyt osis and neutrophilia, creatinine was 2.32, BUN 26 , CO2 15, blood glucose of335,and thereafter was transferred to ICU for A. fib RVR,. Patientwas treated for sepsis, however she became hypotensive, required fluid resuscitation, and combination of norepinephrine and vasopressin she required fluid resuscitationand was managed in the ICU. CTA of the chest ruled out pulmonary emboli, there is multinodular goiter, paratracheal lymph node up to 1 cm, UA shows 19 WBC, there is stage IV decubitus ulcer that is unstageable , fairly large areainvolving the anal orifice into the midline crease.she was encephalopathic when arrival to the ICU. Patient is admitted with consults to Dr. Jiménez critical medicine and Dr. Haddad cardiology Review of Systems Constitutional: Reports as per HPI, Reports lethargy, Denies anorexia, Denies chills, Denies chronic headaches, Denies chronic pain, Denies daytime sleepiness , Denies fatigue, Denies fever, Denies malaise, Denies night sweats, Denies poor appetite, Denies sweats, Denies weakness, Denies weight gain, Denies weight loss Ears, nose, mouth and throat: Reports as per HPI Cardiovascular: Reports as per HPI, Reports decreased exercise tolerance, Reports dyspnea on exertion, Reports irregular heart beat, Reports palpitations Respiratory: Reports as per HPI Gastrointestinal: Reports as per HPI, Denies abdominal pain, Denies belching, Denies bloating, Denies BRBPR, Denies change in bowel habits, Denies coffee ground emesis, Denies constipation, Denies diarrhea, Denies dyspepsia, Denies early satiety, Denies excessive gas, Denies heartburn, Denies hematemesis, Denies hematochezia, Denies indigestion, Denies jaundice, Denies lactose intolerance, Denies loss of appetite, Denies melena, Denies nausea, Denies vomiting Genitourinary: Reports as per HPI Menstruation: Reports as per HPI Musculoskeletal: Reports as per HPI Integumentary: Reports as per HPI, Reports lesions, Reports rash Neurological: Reports as per HPI, Denies aphasia, Denies ataxia, Denies balance difficulties, Denies burning pain, Denies change in mentation, Denies change in smell/taste, Denies change in speech, Denies confusion, Denies convulsions, Denies double vision, Denies gait dysfunction, Denies head injury, Denies headaches, Denies hearing difficulties, Denies lack of coordination, Denies loss of vision, Denies memory loss, Denies migraines, Denies motor disturbance, Denies numbness, Denies paralysis, Denies paresthesias, Denies seizures, Denies sensory deficit, Denies spasticity, Denies syncope, Denies tic, Denies tingling , Denies transient paralysis, Denies tremors, Denies vertigo, Denies weakness, Denies visual changes Psychiatric: Reports as per HPI, Denies anhedonia, Denies anxiety, Denies anxiety attacks, Denies change in appetite, Denies change in libido, Denies change in sleep habits, Denies confusion, Denies depression, Denies difficulty concentrating, Denies disorientation, Denies hallucinations, Denies hopelessness , Denies hypersomnia, Denies insomnia, Denies irritability, Denies memory loss, Denies mood swings, Denies paranoia, Denies sadness/tearfulness, Denies sleep disturbances, Denies suicidal ideation Endocrine: Reports as per HPI, Denies cold intolerance, Denies deepening of the voice, Denies excessive sweating, Denies excessive thirst, Denies fatigue, Denies flushing, Denies heat intolerance, Denies high blood sugars, Denies increase in ring/shoe/hat size, Denies low blood sugars, Denies nocturia, Denies palpitations, Denies polydipsia, Denies polyphagia, Denies polyuria, Denies proptosis, Denies recent glucocorticoid use, Denies thyroid mass, Denies weight change Hematologic/Lymphatic: Reports as per HPI, Denies easy bleeding, Denies easy bruising, Denies lymphadenopathy, Denies lymphedema, Denies thrombophilia Allergic/Immunologic: Reports as per HPI, Denies allergic rhinitis, Denies anaphylaxis, Denies angioedema, Denies gluten intolerance, Denies persistent infections, Denies seasonal allergies, Denies urticaria, Denies wheezing Past Medical History Past Medical History: Atrial Fibrillation, Heart Failure, Sleep Apnea/CPAP/BIPAP Additional Past Medical History / Comment(s): Morbid obesity, chronic atrial fibrillation, hypertension and questionable sleep apnea History of Any Multi-Drug Resistant Organisms: None Reported Past Surgical History: No Surgical Hx Reported Past Psychological History: No Psychological Hx Reported Smoking Status: Never smoker Past Alcohol Use History: Occasional Past Drug Use History: None Reported - Past Family History Father Family Medical History: Congestive Heart Failure (CHF), Coronary Artery Disease (CAD), Diabetes Mellitus, Deep Vein Thrombosis (DVT) Mother History Unknown: Yes (pacemaker) Sister(s) Family Medical History: No Reported History (no brothers, no son's no daughters) Medications and Allergies Home Medications Medication Instructions Recorded Confirmed Type Carvedilol [Coreg] 18.75 mg PO BID 01/14/18 01/14/18 History Lisinopril [Zestril] 15 mg PO BID 01/14/18 01/14/18 History Rivaroxaban [Xarelto] 20 mg PO HS 01/14/18 01/14/18 History Allergies Allergy/AdvReac Type Severity Reaction Status Date / Time ergocalciferol (vitamin D2) Allergy Rash/Hives Verified 01/14/18 20:01 [From Vitamin D2] Physical Exam Vitals: Vital Signs Temp Pulse Resp BP Pulse Ox 01/15/18 08:50 119 H 30 H 96/57 95 01/15/18 08:40 118 H 29 H 136/71 96 01/15/18 08:30 120 H 30 H 95 01/15/18 08:20 121 H 28 H 96 08/03/18 08:10 118 H 28 H 112/74 97 08/03/18 08:00 98.3 F 120 H 32 H 131/50 95 08/03/18 07:50 120 H 27 H 131/50 92 L 08/03/18 07:40 120 H 28 H 115/73 86 L 08/03/18 07:30 118 H 33 H 111/65 88 L 08/03/18 07:20 114 H 28 H 111/65 100 08/03/18 07:10 109 H 38 H 66/54 90 L 08/03/18 07:00 105 H 32 H 89/39 83 L 08/03/18 06:50 104 H 35 H 89/39 93 L 08/03/18 06:40 96 30 H 83/51 100 08/03/18 06:30 100 31 H 107/52 95 08/03/18 06:20 101 H 29 H 105/53 97 08/03/18 06:10 101 H 33 H 86/50 08/03/18 06:00 104 H 33 H 94/50 94 L 08/03/18 05:50 101 H 25 H 103/58 93 L 08/03/18 05:40 102 H 16 100/45 93 L 08/03/18 05:30 97 21 102/49 93 L 08/03/18 05:20 99 23 92/46 95 08/03/18 05:10 100 29 H 92/62 94 L 08/03/18 05:00 104 H 28 H 91/47 95 08/03/18 04:50 105 H 30 H 103/53 94 L 08/03/18 04:40 105 H 27 H 101/53 95 08/03/18 04:30 104 H 24 113/49 94 L 08/03/18 04:20 103 H 28 H 100/55 94 L 08/03/18 04:10 104 H 35 H 71/48 93 L 08/03/18 04:00 104 H 31 H 104/51 96 08/03/18 03:50 104 H 21 77/34 95 08/03/18 03:40 100 40 H 86/54 95 08/03/18 03:30 104 H 30 H 96/51 94 L 08/03/18 03:20 102 H 22 99/55 94 L 08/03/18 03:10 105 H 29 H 101/52 94 L 01/15/18 03:00 101 H 23 93/54 94 L 01/15/18 02:50 101 H 25 H 92/45 96 01/15/18 02:40 101 H 22 80/47 96 01/15/18 02:30 99 23 96/55 91 L 01/15/18 02:20 102 H 28 H 68/47 92 L 01/15/18 02:10 107 H 27 H 71/45 94 L 01/15/18 02:00 98.1 F 107 H 30 H 62/44 91 L 01/15/18 00:31 115 H 20 93/55 01/15/18 00:09 116 H 20 149/105 98 01/14/18 23:37 119 H 117/53 01/14/18 23:00 125 H 22 97 01/14/18 22:18 100.9 F H 125 H 20 101/54 97 01/14/18 22:15 124 H 124/94 01/14/18 21:55 121 H 20 96/53 96 01/14/18 21:33 135 H 26 H 113/63 96 01/14/18 21:00 87/52 01/14/18 20:45 95/50 01/14/18 20:30 104/46 01/14/18 20:28 174 H 104/46 94 L 01/14/18 20:23 177 H 36 H 142/56 95 01/14/18 19:53 56 H 01/14/18 19:32 103.0 F H 40 H Intake and Output 01/14/18 01/15/18 01/15/18 22:59 06:59 14:59 Intake Total 4940.375 42.188 Output Total 50 45 Balance 4890.375 -2.812 Intake: IV 4700 Magnesium Sulfate-D5w Pmx 100 1 gm In Dextrose/Water 1 100ml.bag @ 100 mls/hr IVPB ONCE ONE Rx#: [id number] Potassium Chloride 20 meq 100 In Water For Injection 1 100ml.bag @ 50 mls/hr IVPB ONCE STA Rx#: [id number] Sodium Chloride 0.9% 1, 4000 000 ml @ 999 mls/hr IV . Q1H1M ONE Rx#:[id number] Vancomycin 2,000 mg In 500 Sodium Chloride 0.9% 500 ml @ 167 mls/hr IVPB ONCE ONE Rx#:[id number] Intake, IV Titration 240.375 42.188 Amount Diltiazem 50 mg In Sodium 66 Chloride 0.9% 40 ml @ 10 MG/HR 10 mls/hr IV .Q5H [facility] Rx#:[id number] Norepinephrin 4 mg-0.9% 174.375 Ns Pmx 4 mg In 250 ml @ Titrate IV .Q0M [facility] Rx#: [id number] Norepinephrine 16 mg In 42.188 Dextrose 5% in Water 250 ml @ Titrate IV .Q0M [facility] Rx#:[id number] Output: Urine 50 45 Other: Voiding Method Indwelling Catheter # Bowel Movements 1 Weight 99.79 kg 138 kg ABP, PAP, CO, CI - Last 8 Hours Arterial Blood Pressure 103/44 Arterial Blood Pressure 107/48 Arterial Blood Pressure 119/48 Arterial Blood Pressure 110/65 Arterial Blood Pressure 102/60 Arterial Blood Pressure 126/58 Arterial Blood Pressure 114/63 Arterial Blood Pressure 140/57 Arterial Blood Pressure 127/49 Arterial Blood Pressure 133/46 Arterial Blood Pressure 146/51 Arterial Blood Pressure 125/56 Arterial Blood Pressure 118/59 - Constitutional General appearance: morbidly obese - EENT Eyes: anicteric sclerae, dentition normal ENT: NA/AT, normal oropharynx - Neck Neck: normal ROM - Respiratory Respiratory: bilateral: diminished, prolonged expiration - Cardiovascular Rhythm: regular - Integumentary Integumentary: decreased turgor, normal - Neurologic Neurologic: CNII-XII intact - Musculoskeletal Musculoskeletal: gait normal - Psychiatric Psychiatric: A&O x's 3, appropriate affect Results CBC & Chem 7: 01/15/18 03:04 01/15/18 08:05 Labs: Abnormal Lab Results - Last 24 Hours (Table) 01/14/18 01/14/18 01/14/18 Range/Units 19:50 19:50 19:50 WBC (3.8-10.6) k/uL MCHC (31.0-37.0) g/dL Neutrophils # (Manual) (1.3-7.7) k/uL Lymphocytes # (Manual) 0.75 L (1.0-4.8) k/uL Metamyelocytes # (Man) (0) k/uL Myelocytes # (Manual) (0) k/uL D-Dimer 3.28 H (<0.60) mg/L FEU ABG pH (7.35-7.45) ABG HCO3 (21-25) mmol/L ABG Total CO2 (19-24) mmol/L VBG pH (7.31-7.41) VBG pCO2 (37-51) mmHg VBG HCO3 (24-28) mmol/L Sodium 135 L (137-145) mmol/L Potassium (3.5-5.1) mmol/L Carbon Dioxide 19 L (22-30) mmol/L BUN 20 H (7-17) mg/dL Creatinine 1.10 H (0.52-1.04) mg/dL Glucose 335 H (74-99) mg/dL POC Glucose (mg/dL) (75-99) mg/dL Plasma Lactic Acid Scotty (0.7-2.0) mmol/L Calcium (8.4-10.2) mg/dL Phosphorus (2.5-4.5) mg/dL Magnesium 1.3 L (1.6-2.3) mg/dL Total Bilirubin 1.9 H (0.2-1.3) mg/dL AST (14-36) U/L Total Protein (6.3-8.2) g/dL Albumin (3.5-5.0) g/dL Urine Appearance (Clear) Urine Protein (Negative) Urine Glucose (UA) (Negative) Urine Ketones (Negative) Urine Blood (Negative) Ur Leukocyte Esterase (Negative) Urine RBC (0-5) /hpf Urine WBC (0-5) /hpf Ur Squamous Epith Cells (0-4) /hpf Urine Bacteria (None) /hpf Urine Mucus (None) /hpf 01/14/18 01/14/18 01/14/18 Range/Units 19:50 20:20 20:25 WBC (3.8-10.6) k/uL MCHC (31.0-37.0) g/dL Neutrophils # (Manual) (1.3-7.7) k/uL Lymphocytes # (Manual) (1.0-4.8) k/uL Metamyelocytes # (Man) (0) k/uL Myelocytes # (Manual) (0) k/uL D-Dimer (<0.60) mg/L FEU ABG pH (7.35-7.45) ABG HCO3 (21-25) mmol/L ABG Total CO2 (19-24) mmol/L VBG pH (7.31-7.41) VBG pCO2 29 L (37-51) mmHg VBG HCO3 17 L (24-28) mmol/L Sodium (137-145) mmol/L Potassium (3.5-5.1) mmol/L Carbon Dioxide (22-30) mmol/L BUN (7-17) mg/dL Creatinine (0.52-1.04) mg/dL Glucose (74-99) mg/dL POC Glucose (mg/dL) (75-99) mg/dL Plasma Lactic Acid Scotty 6.0 H* (0.7-2.0) mmol/L Calcium (8.4-10.2) mg/dL Phosphorus (2.5-4.5) mg/dL Magnesium (1.6-2.3) mg/dL Total Bilirubin (0.2-1.3) mg/dL AST (14-36) U/L Total Protein (6.3-8.2) g/dL Albumin (3.5-5.0) g/dL Urine Appearance Cloudy H (Clear) Urine Protein 1+ H (Negative) Urine Glucose (UA) 4+ H (Negative) Urine Ketones 1+ H (Negative) Urine Blood Moderate H (Negative) Ur Leukocyte Esterase Moderate H (Negative) Urine RBC 27 H (0-5) /hpf Urine WBC 19 H (0-5) /hpf Ur Squamous Epith Cells 7 H (0-4) /hpf Urine Bacteria Rare H (None) /hpf Urine Mucus Rare H (None) /hpf 01/14/18 01/14/18 01/15/18 Range/Units 23:55 23:57 00:35 WBC (3.8-10.6) k/uL MCHC (31.0-37.0) g/dL Neutrophils # (Manual) (1.3-7.7) k/uL Lymphocytes # (Manual) (1.0-4.8) k/uL Metamyelocytes # (Man) (0) k/uL Myelocytes # (Manual) (0) k/uL D-Dimer (<0.60) mg/L FEU ABG pH (7.35-7.45) ABG HCO3 (21-25) mmol/L ABG Total CO2 (19-24) mmol/L VBG pH 7.28 L (7.31-7.41) VBG pCO2 34 L (37-51) mmHg VBG HCO3 16 L (24-28) mmol/L Sodium (137-145) mmol/L Potassium (3.5-5.1) mmol/L Carbon Dioxide (22-30) mmol/L BUN (7-17) mg/dL Creatinine (0.52-1.04) mg/dL Glucose (74-99) mg/dL POC Glucose (mg/dL) 276 H (75-99) mg/dL Plasma Lactic Acid Scotty 10.8 H* (0.7-2.0) mmol/L Calcium (8.4-10.2) mg/dL Phosphorus (2.5-4.5) mg/dL Magnesium (1.6-2.3) mg/dL Total Bilirubin (0.2-1.3) mg/dL AST (14-36) U/L Total Protein (6.3-8.2) g/dL Albumin (3.5-5.0) g/dL Urine Appearance (Clear) Urine Protein (Negative) Urine Glucose (UA) (Negative) Urine Ketones (Negative) Urine Blood (Negative) Ur Leukocyte Esterase (Negative) Urine RBC (0-5) /hpf Urine WBC (0-5) /hpf Ur Squamous Epith Cells (0-4) /hpf Urine Bacteria (None) /hpf Urine Mucus (None) /hpf 01/15/18 01/15/18 01/15/18 Range/Units 01:46 03:04 03:04 WBC 20.7 H (3.8-10.6) k/uL MCHC 30.8 L (31.0-37.0) g/dL Neutrophils # (Manual) 17.30 H (1.3-7.7) k/uL Lymphocytes # (Manual) (1.0-4.8) k/uL Metamyelocytes # (Man) 1.45 H (0) k/uL Myelocytes # (Manual) 0.21 H (0) k/uL D-Dimer (<0.60) mg/L FEU ABG pH (7.35-7.45) ABG HCO3 (21-25) mmol/L ABG Total CO2 (19-24) mmol/L VBG pH (7.31-7.41) VBG pCO2 (37-51) mmHg VBG HCO3 (24-28) mmol/L Sodium 136 L (137-145) mmol/L Potassium 3.3 L (3.5-5.1) mmol/L Carbon Dioxide 15 L (22-30) mmol/L BUN 26 H (7-17) mg/dL Creatinine 2.32 H (0.52-1.04) mg/dL Glucose 147 H (74-99) mg/dL POC Glucose (mg/dL) 180 H (75-99) mg/dL Plasma Lactic Acid Scotty (0.7-2.0) mmol/L Calcium 8.2 L (8.4-10.2) mg/dL Phosphorus 1.9 L (2.5-4.5) mg/dL Magnesium 1.3 L (1.6-2.3) mg/dL Total Bilirubin (0.2-1.3) mg/dL AST (14-36) U/L Total Protein (6.3-8.2) g/dL Albumin (3.5-5.0) g/dL Urine Appearance (Clear) Urine Protein (Negative) Urine Glucose (UA) (Negative) Urine Ketones (Negative) Urine Blood (Negative) Ur Leukocyte Esterase (Negative) Urine RBC (0-5) /hpf Urine WBC (0-5) /hpf Ur Squamous Epith Cells (0-4) /hpf Urine Bacteria (None) /hpf Urine Mucus (None) /hpf 01/15/18 01/15/18 01/15/18 Range/Units 04:17 06:00 08:05 WBC (3.8-10.6) k/uL MCHC (31.0-37.0) g/dL Neutrophils # (Manual) (1.3-7.7) k/uL Lymphocytes # (Manual) (1.0-4.8) k/uL Metamyelocytes # (Man) (0) k/uL Myelocytes # (Manual) (0) k/uL D-Dimer (<0.60) mg/L FEU ABG pH (7.35-7.45) ABG HCO3 (21-25) mmol/L ABG Total CO2 (19-24) mmol/L VBG pH (7.31-7.41) VBG pCO2 (37-51) mmHg VBG HCO3 (24-28) mmol/L Sodium (137-145) mmol/L Potassium (3.5-5.1) mmol/L Carbon Dioxide (22-30) mmol/L BUN (7-17) mg/dL Creatinine (0.52-1.04) mg/dL Glucose (74-99) mg/dL POC Glucose (mg/dL) 211 H (75-99) mg/dL Plasma Lactic Acid Scotty 7.0 H* 6.2 H* (0.7-2.0) mmol/L Calcium (8.4-10.2) mg/dL Phosphorus (2.5-4.5) mg/dL Magnesium (1.6-2.3) mg/dL Total Bilirubin (0.2-1.3) mg/dL AST (14-36) U/L Total Protein (6.3-8.2) g/dL Albumin (3.5-5.0) g/dL Urine Appearance (Clear) Urine Protein (Negative) Urine Glucose (UA) (Negative) Urine Ketones (Negative) Urine Blood (Negative) Ur Leukocyte Esterase (Negative) Urine RBC (0-5) /hpf Urine WBC (0-5) /hpf Ur Squamous Epith Cells (0-4) /hpf Urine Bacteria (None) /hpf Urine Mucus (None) /hpf 01/15/18 01/15/18 01/15/18 Range/Units 08:05 08:08 08:25 WBC (3.8-10.6) k/uL MCHC (31.0-37.0) g/dL Neutrophils # (Manual) (1.3-7.7) k/uL Lymphocytes # (Manual) (1.0-4.8) k/uL Metamyelocytes # (Man) (0) k/uL Myelocytes # (Manual) (0) k/uL D-Dimer (<0.60) mg/L FEU ABG pH 7.19 L* (7.35-7.45) ABG HCO3 13 L (21-25) mmol/L ABG Total CO2 14 L (19-24) mmol/L VBG pH (7.31-7.41) VBG pCO2 (37-51) mmHg VBG HCO3 (24-28) mmol/L Sodium 134 L (137-145) mmol/L Potassium (3.5-5.1) mmol/L Carbon Dioxide 14 L (22-30) mmol/L BUN 26 H (7-17) mg/dL Creatinine 2.26 H (0.52-1.04) mg/dL Glucose 170 H (74-99) mg/dL POC Glucose (mg/dL) 181 H (75-99) mg/dL Plasma Lactic Acid Scotty (0.7-2.0) mmol/L Calcium 7.0 L (8.4-10.2) mg/dL Phosphorus (2.5-4.5) mg/dL Magnesium (1.6-2.3) mg/dL Total Bilirubin (0.2-1.3) mg/dL AST 121 H (14-36) U/L Total Protein 5.4 L (6.3-8.2) g/dL Albumin 2.5 L (3.5-5.0) g/dL Urine Appearance (Clear) Urine Protein (Negative) Urine Glucose (UA) (Negative) Urine Ketones (Negative) Urine Blood (Negative) Ur Leukocyte Esterase (Negative) Urine RBC (0-5) /hpf Urine WBC (0-5) /hpf Ur Squamous Epith Cells (0-4) /hpf Urine Bacteria (None) /hpf Urine Mucus (None) /hpf Microbiology - Last 24 Hours (Table) 01/14/18 21:02 Blood Culture Gram Stain - Preliminary Blood 01/14/18 21:02 Blood Culture - Final Blood 01/14/18 20:25 Urine Culture - Preliminary Urine,Voided Laboratory Results WBC 20.7 k/uL (3.8-10.6) H 01/15/18 03:04 RBC 4.42 m/uL (3.80-5.40) 01/15/18 03:04 Hgb 12.1 gm/dL (11.4-16.0) 01/15/18 03:04 Hct 39.3 % (34.0-46.0) 01/15/18 03:04 MCV 88.9 fL (80.0-100.0) 01/15/18 03:04 MCH 27.4 pg (25.0-35.0) 01/15/18 03:04 MCHC 30.8 g/dL (31.0-37.0) L 01/15/18 03:04 RDW 14.1 % (11.5-15.5) 01/15/18 03:04 Plt Count 219 k/uL (150-450) 01/15/18 03:04 Neutrophils % (Manual) 48 % 01/15/18 03:04 Band Neutrophils % 36 % 01/15/18 03:04 Lymphocytes % (Manual) 9 % 01/15/18 03:04 Monocytes % (Manual) 1 % 01/15/18 03:04 Metamyelocytes % 7 % 01/15/18 03:04 Myelocytes % 1 % 01/15/18 03:04 Neutrophils # (Manual) 17.30 k/uL (1.3-7.7) H 01/15/18 03:04 Lymphocytes # (Manual) 1.86 k/uL (1.0-4.8) 01/15/18 03:04 Monocytes # (Manual) 0.21 k/uL (0-1.0) 01/15/18 03:04 Metamyelocytes # (Man) 1.45 k/uL (0) H 01/15/18 03:04 Myelocytes # (Manual) 0.21 k/uL (0) H 01/15/18 03:04 Nucleated RBCs 0 /100 WBC (0-0) 01/15/18 03:04 Manual Slide Review Performed 01/15/18 03:04 Toxic Granulation Present 01/15/18 03:04 Toxic Vacuolation Present 01/15/18 03:04 RBC Morphology Normal 01/14/18 19:50 Hypochromasia Slight 01/15/18 03:04 PT 11.0 sec (9.0-12.0) 01/14/18 19:50 INR 1.1 (<1.2) 01/14/18 19:50 APTT 26.0 sec (22.0-30.0) 01/14/18 19:50 D-Dimer 3.28 mg/L FEU (<0.60) H 01/14/18 19:50 Sample Site [place] 01/15/18 08:25 ABG pH 7.19 (7.35-7.45) L* 01/15/18 08:25 ABG pCO2 35 mmHg (35-45) 01/15/18 08:25 ABG pO2 86 mmHg (83-108) 01/15/18 08:25 ABG HCO3 13 mmol/L (21-25) L 01/15/18 08:25 ABG Total CO2 14 mmol/L (19-24) L 01/15/18 08:25 ABG O2 Saturation 95.8 % (94-97) 01/15/18 08:25 ABG Base Excess -15.0 mmol/L 01/15/18 08:25 Christiano Test no 01/15/18 08:25 VBG pH 7.28 (7.31-7.41) L 01/14/18 23:57 VBG pCO2 34 mmHg (37-51) L 01/14/18 23:57 VBG HCO3 16 mmol/L (24-28) L 01/14/18 23:57 FiO2 44 % 01/15/18 08:25 Sodium 134 mmol/L (137-145) L 01/15/18 08:05 Potassium 4.2 mmol/L (3.5-5.1) 01/15/18 08:05 Chloride 105 mmol/L (98-107) 01/15/18 08:05 Carbon Dioxide 14 mmol/L (22-30) L 01/15/18 08:05 Anion Gap 15 mmol/L 01/15/18 08:05 BUN 26 mg/dL (7-17) H 01/15/18 08:05 Creatinine 2.26 mg/dL (0.52-1.04) H 01/15/18 08:05 Est GFR (CKD-EPI)AfAm 26 (>60 ml/min/1.73 sqM) 01/15/18 08:05 Est GFR (CKD-EPI)NonAf 23 (>60 ml/min/1.73 sqM) 01/15/18 08:05 Glucose 170 mg/dL (74-99) H 01/15/18 08:05 POC Glucose (mg/dL) 181 mg/dL (75-99) H 01/15/18 08:08 POC Glu [employer] ID 01/15/18 08:[address] Glu mg/dL 229 01/14/18 19:50 Hemoglobin A1c 9.6 % (4.0-6.0) H 01/14/18 19:50 Lactic Ac Sepsis Rflx Y 01/14/18 21:11 Plasma Lactic Acid Scotty 6.2 mmol/L (0.7-2.0) H* 01/15/18 08:05 Calcium 7.0 mg/dL (8.4-10.2) L 01/15/18 08:05 Phosphorus 1.9 mg/dL (2.5-4.5) L 01/15/18 03:04 Magnesium 1.3 mg/dL (1.6-2.3) L 01/15/18 03:04 Total Bilirubin 0.9 mg/dL (0.2-1.3) 01/15/18 08:05 AST 121 U/L (14-36) H 01/15/18 08:05 ALT 50 U/L (9-52) 01/15/18 08:05 Alkaline Phosphatase 68 U/L (38-126) 01/15/18 08:05 Total Creatine Kinase 50 U/L (30-135) 01/14/18 19:50 CK-MB (CK-2) 0.4 ng/mL (0.0-2.4) 01/14/18 19:50 CK-MB (CK-2) Rel Index 0.8 01/14/18 19:50 Troponin I <0.012 ng/mL (0.000-0.034) 01/14/18 19:50 NT-Pro-B Natriuret Pep 911 pg/mL 01/14/18 19:50 Total Protein 5.4 g/dL (6.3-8.2) L 01/15/18 08:05 Albumin 2.5 g/dL (3.5-5.0) L 01/15/18 08:05 Urine Color Yellow 01/14/18 20:25 Urine Appearance Cloudy (Clear) H 01/14/18 20:25 Urine pH 6.5 (5.0-8.0) 01/14/18 20:25 Ur Specific [place] 1.013 (1.001-1.035) 01/14/18 20:25 Urine Protein 1+ (Negative) H 01/14/18 20:25 Urine Glucose (UA) 4+ (Negative) H 01/14/18 20:25 Urine Ketones 1+ (Negative) H 01/14/18 20:25 Urine Blood Moderate (Negative) H 01/14/18 20:25 Urine Nitrite Negative (Negative) 01/14/18 20:25 Urine Bilirubin Negative (Negative) 01/14/18 20:25 Urine Urobilinogen <2.0 mg/dL (<2.0) 01/14/18 20:25 Ur Leukocyte Esterase Moderate (Negative) H 01/14/18 20:25 Urine RBC 27 /hpf (0-5) H 01/14/18 20:25 Urine WBC 19 /hpf (0-5) H 01/14/18 20:25 Ur Squamous Epith Cells 7 /hpf (0-4) H 01/14/18 20:25 Urine Bacteria Rare /hpf (None) H 01/14/18 20:25 Urine Mucus Rare /hpf (None) H 01/14/18 20:25 Assessment and Plan Plan: 1. A. fib with RVR patientpatient was seen in consultation by Dr. Dr. Haddad cardiology, is in the pill and cord is discontinued secondary to hypotension with septic shock, metoprolol was initiated, patient has received short-term IV 2. Sepsis with septic shock, arising from severe decubitus ulcer, patient had received significantfluid resuscitation along with pressor agents, Levophed and vasopressin, 3. Large decubitus ulcer, with no opportunity 4treatment to thisprior to admission as the patient refused treatmentfor a chronic ongoing decubitus ulcerpatient was provided with broad-spectrum antibioticsIVZosyn and vancomycin consult were made with infectious disease with local wound care 4. hypotension with septic shock, patient deteriorated despite fluid resuscitation, and IV antibiotics, with no time for clinical response, patient refusing mechanical intubation for respiratory distressnext 5. Acute hypoxemic respiratory failure, secondary to sepsis, patient declined mechanical ventilation and is DO NOT RESUSCITATE, refused intubation 6. Diabetes mellitustype II with complications,not on medicationsprior to admission 7.Severe metabolic acidosis with lactic acidosis fluid resuscitation, correct primary etiology especially sepsis, 8.Electrolyte abnormalitieshypo-kalemiahypomagnesemiareplacements provided 9.Acute kidney failure with CK D stage III,I graft moderate protein malnutrition 10. Chronic atrial fibrillation, on Coreg and Xarelto prior to admission for long-term anticoagulation Patient is critically ill,prognosis severely guarded in ICU, within 24 hours of admission a Primary cause of , septic shock secondary to decubitus ulcer b Secondary cause of atrial fibrillation with rapid ventricular rate c tertiary cause of diabetes mellitus type 2 with complications
[2018-01-15] MEDS ORDERED: RIVAROXABAN 20 MG TAB PO SCH (21:00)
[2018-01-16] MEDS ORDERED: VANCOMYCIN 2,000 MG in SODIUM CHLORIDE 0.9% 500 ML IVPB ONE (07:00)
[2018-01-18 09:25] LABS: ABG PH 7.19 (7.35-7.45)
== END 2018-01-15 14:36 | disposition expired | DRG 871 ==
LOC: EC 19:31 → 6ICU 23:21
PROVIDERS: ADMIT Family Medicine; ATTEND Family Medicine
PROC: 03HY32Z Insertion of Monitoring Device into Upper Artery, Percutaneous Approach (ICD-10-PCS; principal; 2018-01-15)
PROC: 02H633Z Insertion of Infusion Device into Right Atrium, Percutaneous Approach (ICD-10-PCS; 2018-01-15)
DX: A41.9 Sepsis, unspecified organism (principal); G93.41 Metabolic encephalopathy; J96.01 Acute respiratory failure with hypoxia; L89.154 Pressure ulcer of sacral region, stage 4; R65.21 Severe sepsis with septic shock; E44.0 Moderate protein-calorie malnutrition; E87.2 Acidosis; N17.9 Acute kidney failure, unspecified; I13.0 Hypertensive heart and chronic kidney disease with heart failure and stage 1 through stage 4 chronic kidney disease, or unspecified chronic kidney disease; Z68.43 Body mass index [BMI] 50.0-59.9, adult; E11.65 Type 2 diabetes mellitus with hyperglycemia; E66.01 Morbid (severe) obesity due to excess calories; I48.2 Chronic atrial fibrillation; I50.9 Heart failure, unspecified; E11.22 Type 2 diabetes mellitus with diabetic chronic kidney disease; F03.90 Unspecified dementia, unspecified severity, without behavioral disturbance, psychotic disturbance, mood disturbance, and anxiety; N18.3 Chronic kidney disease, stage 3 (moderate); E04.2 Nontoxic multinodular goiter; G47.30 Sleep apnea, unspecified; I45.10 Unspecified right bundle-branch block; Z66 Do not resuscitate; Z79.01 Long term (current) use of anticoagulants; Z79.899 Other long term (current) drug therapy; Z88.8 Allergy status to other drugs, medicaments and biological substances; Z82.49 Family history of ischemic heart disease and other diseases of the circulatory system; Z83.3 Family history of diabetes mellitus
CPT/HCPCS: 36415; 71045; 71275; 80048; 80053; 81001; 82550; 82553; 82803; 82805; 83036; 83605; 83735; 83880; 84100; 84484; 85025; 85379; 85610; 85730; 87040; 87077; 87086; 87186; 93005; 93306; 96365; 96366; 96375; 96376; 99291